=== PATIENT | female | born 1950 | race Caucasian/White ===

== ENCOUNTER → 2018-07-18 | Outpatient (CLI) | payer OTHER | LOC: M PLARAD 14:42 | DX: R20.0 Anesthesia of skin (principal); R20.2 Paresthesia of skin | CPT/HCPCS: 70551 ==

== ENCOUNTER → 2019-04-08 | Outpatient (REF) | payer MEDICARE, OTHER ==
[2019-04-08 18:26] LABS: FOLATE 12.8 NG/ML; FREE T4 1.07 NG/DL (0.76-1.46); HEMOGLOBIN A1c 5.4 %; RHEUMATOID FACTOR QUANT < 10.0 IU/ML (<15.0); TOTAL PROTEIN 7.3 GM/DL (6.4-8.2); VITAMIN B12 LEVEL 858 PG/ML
[2019-04-09 11:38] LABS: ALBUMIN 3.94 GM/DL (3.29-5.55); ALPHA-1-GLOBULIN % 4.9 % (2.9-4.9); ALPHA-1-GLOBULINS 0.36 GM/DL (0.17-0.41); ALPHA-2-GLOBULINS 0.89 GM/DL (0.42-0.99); ALPHA-2-GLOBULINS % 12.2 % (7.1-11.8); BETA-1-GLOBULINS 0.46 GM/DL (0.28-0.60); BETA-1-GLOBULINS % 6.3 % (4.7-7.2); BETA-2-GLOBULINS 0.45 GM/DL (0.19-0.55); BETA-2-GLOBULINS % 6.2 % (3.2-6.5); GAMMA GLOBULIN % 16.4 % (11.1-18.8)
[2019-04-11 14:40] LABS: ANTI THROMBIN 3 ANTIGEN IMMUNO 98 % (72-124); ANTI THROMBIN 3 FUNCT ACTIVITY 108 % (75-135); ANTINUCLEAR ANTIBODIES DIRECT Negative (Negative); CARDIOLIPIN IGA ANTIBODY <9 APL U/mL (0-11); CARDIOLIPIN IGG ANTIBODY <9 GPL U/mL (0-14); CARDIOLIPIN IGM ANTIBODY <9 MPL U/mL (0-12); Lyme Disease IgG/IgM Antibodie <0.91 ISR (0.00-0.90); Lyme Disease IgM Ab Quantitati <0.80 index (0.00-0.79)
[2019-04-14 09:50] LABS: DRVV SCREEN 47.6 SEC
[2019-04-14 09:58] LABS: PTT LUPUS TYPE ANTICOAG SCREEN 1.2 (0-1.2)
[2019-04-14 10:06] LABS: DRVV CONFIRM 42.1 SEC; LUPUS CONFIRM RATIO 1.1
[2019-04-14 10:12] LABS: NORMALIZED RATIO 1.09 (0.00-1.20)
== END ==
LOC: M LABNEURO 13:31
PROVIDERS: ATTEND Psychiatry & Neurology Neurology
DX: G37.9 Demyelinating disease of central nervous system, unspecified (principal); I67.9 Cerebrovascular disease, unspecified

== ENCOUNTER → 2019-04-15 | Outpatient (REF) | payer MEDICARE ==
[2019-04-21 00:06] LABS: VITAMIN B1 LEVEL WHOLE BLOOD 104.6 nmol/L (66.5-200.0); VITAMIN B6,PYRIDOXAL PHOSPHATE 4.5 ug/L (2.0-32.8); VITAMIN E(ALPHA TOCOPHEROL) 7.8 mg/L (9.0-29.0); VITAMIN E(GAMMA TOCOPHEROL) 2.7 mg/L (0.5-4.9)
== END ==
LOC: M LABNEURO 14:17
PROVIDERS: ATTEND Psychiatry & Neurology Neurology
DX: G37.9 Demyelinating disease of central nervous system, unspecified (principal)

== ENCOUNTER → 2021-04-11 | Outpatient (REF) | payer MEDICARE, OTHER ==
[2021-04-11 16:35] LABS: APPEARANCE, URINE CLEAR (CLEAR); BACTERIA, URINE AUTO 1+ (NEGATIVE); BILIRUBIN, URINE AUTO NEGATIVE (NEGATIVE); BLOOD, URINE BLOOD NEGATIVE (NEGATIVE); COLOR, URINE YELLOW (YELLOW); GLUCOSE, URINE (UA) AUTO NEGATIVE (NEGATIVE); KETONE, URINE AUTO NEGATIVE (NEGATIVE); LEUKOCYTE ESTERASE, URINE AUTO NEGATIVE (NEGATIVE); NITRITE, URINE AUTO NEGATIVE (NEGATIVE); PROTEIN, URINE AUTO NEGATIVE (NEGATIVE); RBC, URINE AUTO 0 /HPF (0-3); SPECIFIC GRAVITY URINE AUTO 1.009 (1.002-1.035); SQUAMOUS EPITHELIAL CELL UR AU 1 /HPF (0-6); UROBILINOGEN, URINE AUTO 0.2 mg/dL (0.0-2.0); WBC, URINE AUTO 0 /HPF (0-3)
[2021-04-11 17:07] LABS: CREATININE,RANDOM URINE 69.7 MG/DL; TOTAL PROTEIN,RANDOM URINE 7.9 MG/DL (0.0-12.0)
[2021-04-11 17:26] LABS: C REACTIVE PROTEIN QUANTITATIV 0.7 MG/DL (0.00-0.30); PHOSPHORUS LEVEL 3.4 MG/DL (2.5-4.9); TOTAL 25(OH) VITAMIN D 20.9 NG/ML (30.0-100.0)
[2021-04-17 20:19] LABS: ANTI SMITH(Sm) AB <20 Units (<20); COMPLEMENT TOTAL (CH50) > 60 U/mL (>41)
== END ==
LOC: M SFHCRHEU 15:25
PROVIDERS: ATTEND Internal Medicine
DX: R76.8 Other specified abnormal immunological findings in serum (principal); M79.10 Myalgia, unspecified site; M25.40 Effusion, unspecified joint

== ENCOUNTER → 2021-06-08 | Outpatient (REF) | payer MEDICARE ==
[2021-06-08 13:35] LABS: MAGNESIUM LEVEL 2.3 MG/DL (1.8-2.4)
[2021-06-08 14:02] LABS: FOLATE 6.4 NG/ML
== END ==
LOC: M LAB REF 12:55
PROVIDERS: ATTEND Internal Medicine Nephrology
DX: D75.89 Other specified diseases of blood and blood-forming organs (principal); N18.32 Chronic kidney disease, stage 3b

== ENCOUNTER → 2021-12-21 | Outpatient (REF) | payer MEDICARE | LOC: M LAB REF 12:51 | PROVIDERS: ATTEND Nurse Practitioner Family | DX: N18.32 Chronic kidney disease, stage 3b (principal) ==